=== PATIENT | female | born 1980 | race Caucasian/White ===

== ENCOUNTER 2016-11-01 20:34 | Emergency (ER) | payer OTHER ==
[~2016-11-01] VITALS: Ht 182.9 cm; Wt 93.0 kg
[2016-11-01 20:39] VITALS: Ht 182.9 cm; Wt 93.0 kg
[2016-11-01 21:51] LABS: URINE BLOOD (Dip) POC 2+ (NEGATIVE)
--- NOTE | 2016-11-01 22:04 | ERD ---
ER Documentation Chief Complaint Date/Time DATE: 11/01/16 TIME: 22:00 Chief Complaint Pt reports she was playing with her urethra and an "object sucked inside" HPI This is a 36-year-old female presents to the ER stating that she was playing with herself with a cartridge from a vape stick, when the object got "sucked up " by her urethra. Patient states that the battery was out of the foreign body. Patient denies any pain at this time. She denies any urinary frequency dysuria or hematuria.Patient denies any pelvic pain.Patient denies any fevers or chills. ROS 12 point review of systems was done, all negative except per HPI. Medications Home Meds Active Scripts Cephalexin* (Keflex*) 500 Mg Capsule, 500 MG PO BID for 7 Days, CAP Prov:PRITINIDA PATRICIA 11/01/16 Allergies Allergies: Coded Allergies: Penicillins (Verified Allergy, Unknown, 11/01/16) Sulfa (Sulfonamide Antibiotics) (Verified Allergy, Unknown, 11/01/16) PMhx/Soc Medical and Surgical Hx: pt denies Medical Hx History of Surgery: Yes (D&C) Hx Alcohol Use: No Hx Substance Use: Yes (weed) Hx Tobacco Use: No Smoking Status: Never smoker Physical Exam Vitals Vital Signs Date Time Temp Pulse Resp B/P Pulse Ox O2 Delivery O2 Flow Rate FiO2 11/01/16 23:04 98.0 18 140/78 100 11/01/16 20:39 97.9 103 18 152/83 100 Physical Exam GENERAL: The patient is well developed and appropriate for usual state of health , in no apparent distress. HEENT: Atraumatic. CHEST: Clear to auscultation bilaterally. There are no rales, wheezes or rhonchi. HEART: Regular rate and rhythm. No murmurs, clicks, rubs or gallops. ABDOMEN: Soft, nontender and nondistended. No suprapubic tenderness. : foreign body is felt near the urethra, no vaginal FB, discharge or lesions. NEURO: Alert and oriented. Results 24 hrs Laboratory Tests Test 11/01/16 21:57 Bedside Urine pH (LAB) 5.5 Bedside Urine Protein (LAB) Trace Bedside Urine Glucose (UA) Negative Bedside Urine Ketones (LAB) Trace Bedside Urine Blood 2+ Bedside Urine Nitrite (LAB) Negative Bedside Urine Leukocyte Esterase (L Negative [facility] [id number] [id number] Radiology Main Line: [phone] DIAGNOSTIC IMAGING REPORT Patient: REYNA MCDANIEL : 1980 Age: 36 Sex: F MR #: [id number] DOS: 11/01/162124 Ordering MD: AGATA NOE MD Location: [facility] Room/Bed: PROCEDURE: Urinary bladder ultrasound . CLINICAL INDICATION: Rule out foreign body in bladder TECHNIQUE: Multiple sonographic images of the bladder were obtained. The images were reviewed on a PACS workstation. COMPARISON: None. FINDINGS: There is appearance of a 3.3 cm craniocaudad, 0.6 cm anterior-posterior dimension, 3.4 cm transverse dimension linear echogenic structure in the posterior bladder suggestive of a foreign body. IMPRESSION: There is appearance of a 3.3 cm craniocaudad, 0.6 cm anterior-posterior dimension, 3.4 cm transverse dimension linear echogenic structure with mild posterior acoustic shadowing in the posterior bladder suggestive of a foreign body. RPTAT: HJES .Sriram Mckenna MD, MD Date Time Electronically viewed and signed by .Sriram Mckenna MD, MD on 11/01/2016 22:53 .S/ CC: AGATA NOE MD Procedures/MDM This is a 36-year-old female that presents to the ER with a foreign body. I discussed this case with my supervising physician Dr. Han, and he called Dr. Waddell who is a urologist. Urologist patient is stable for follow-up as an outpatient on Friday. She will be sent home with Keflex for infection prophylaxis. We did discuss patient's penicillin allergy with urologist, however Keflex remained his recommendation. Patient is to follow-up with urologist on Friday return to ER sooner if symptoms worsen. My medical decision making shared with the patient she understands and agrees with plan. Departure Diagnosis: Primary Impression: Retained foreign body Condition: Stable NIDA MARCOS Nov 01, 2016 22:04
--- NOTE | 2016-11-01 22:53 | RADRPT ---
PROCEDURE: Urinary bladder ultrasound . CLINICAL INDICATION: Rule out foreign body in bladder TECHNIQUE: Multiple sonographic images of the bladder were obtained. The images were reviewed on a PACS workstation. COMPARISON: None. FINDINGS: There is appearance of a 3.3 cm craniocaudad, 0.6 cm anterior-posterior dimension, 3.4 cm transverse dimension linear echogenic structure in the posterior bladder suggestive of a foreign body. IMPRESSION: There is appearance of a 3.3 cm craniocaudad, 0.6 cm anterior-posterior dimension, 3.4 cm transverse dimension linear echogenic structure with mild posterior acoustic shadowing in the posterior bladde r suggestive of a foreign body. RPTAT: HJES .Sriram Mckenna MD, Date Time Electronically viewed and signed by .Sriram Mckenna MD, MD on 11/01/2016 22:53 .S/
[2016-11-01] MEDS ORDERED: CEPH-443 PO (22:58)
[2016-11-01 23:04] VITALS: BP 140/78; RESP 18; TEMP 98
== END 2016-11-01 23:00 | disposition home or self-care (01) ==
LOC: FTE 20:34
DX: T19.0XXA Foreign body in urethra, initial encounter (principal); X58.XXXA Exposure to other specified factors, initial encounter; Y92.9 Unspecified place or not applicable
CPT/HCPCS: 76705; 81003; Z7502